=== PATIENT | male | born 1955 | race Caucasian/White ===

== ENCOUNTER 2016-12-17 20:21 | Emergency (ER) | payer OTHER ==
[~2016-12-17] VITALS: Ht 172.7 cm; Wt 68.2 kg
[2016-12-17 21:26] LABS: HEMATOCRIT 42.3 % (39.2-51.8); HEMOGLOBIN 13.9 g/dL (13.7-18.0); WHITE BLOOD COUNT 8.6 x10^3/uL (3.4-10)
[2016-12-17 21:35] LABS: BLOOD UREA NITROGEN 17 mg/dL (7-18)
[2016-12-17 21:38] LABS: ASPARTATE AMINO TRANSFERASE 19 U/L (15-37)
[2016-12-17] MEDS ORDERED: DEXTROSE 50%, 50ML SYRINGE IVPush ONE (23:00)
[2016-12-17] MEDS ORDERED: DEXTROSE 50%, 50ML VIAL ONE (23:03)
[2016-12-17 23:16] VITALS: BP 116/75
== END 2016-12-18 00:37 | disposition home or self-care (01) ==
LOC: ED 22:39
DX: E11.649 Type 2 diabetes mellitus with hypoglycemia without coma (principal)
CPT/HCPCS: 36415; 80053; 82962; 85025; 93005; 96374